=== PATIENT | female | born 1960 | race Caucasian/White ===

== ENCOUNTER 2016-06-26 06:10 | Day surgery (SDC) | payer OTHER ==
[2016-06-26] MEDS ORDERED: LACTATED RINGERS 1,000 ML IV ONE (06:46)
[2016-06-26] MEDS ORDERED: fentaNYL 250 MCG/5 ML VIAL IVP ONE (07:25)
[2016-06-26] MEDS ORDERED: MIDAZOLAM 2 MG/2 ML VIAL IVP ONE (07:25)
== END 2016-06-26 06:11 | disposition home or self-care (01) ==
PROC: 0DBK8ZZ Excision of Ascending Colon, Via Natural or Artificial Opening Endoscopic (ICD-10-PCS; principal; 2016-06-26 07:30)
DX: Z12.11 Encounter for screening for malignant neoplasm of colon (principal); D12.2 Benign neoplasm of ascending colon; K57.30 Diverticulosis of large intestine without perforation or abscess without bleeding; K64.8 Other hemorrhoids; D17.79 Benign lipomatous neoplasm of other sites; Z80.0 Family history of malignant neoplasm of digestive organs; I10 Essential (primary) hypertension; E66.9 Obesity, unspecified; Z68.41 Body mass index [BMI] 40.0-44.9, adult; J45.909 Unspecified asthma, uncomplicated; K30 Functional dyspepsia; K21.9 Gastro-esophageal reflux disease without esophagitis
CPT/HCPCS: 45380; J3010; J7120

== ENCOUNTER 2016-12-11 09:50 | Outpatient (CLI) | payer OTHER ==
[2016-12-11 17:56] LABS: BASOPHILS # (AUTO) 0.1 10^3/uL (0.0-0.1); BASOPHILS % (AUTO) 0.8 %; EOSINOPHILS # (AUTO) 0.1 10^3/uL (0.0-0.7); EOSINOPHILS % (AUTO) 0.9 %; HCT - HEMATOCRIT 46.4 % (37.0-47.0); HGB - HEMOGLOBIN 15.4 g/dL (12.0-16.0); LYMPHOCYTES # (AUTO) 2.9 10^3/uL (1.5-3.5); LYMPHOCYTES % (AUTO) 30.5 %; MEAN CORPUSCULAR HEMOGLOBIN 30.7 pg (27.0-31.0); MEAN CORPUSCULAR HGB CONC 33.3 g/dL (32.0-36.0); MEAN CORPUSCULAR VOLUME 92.2 fL (81.0-99.0); MEAN PLATELET VOLUME 9.6 fL (7.9-10.8); MONOCYTES # (AUTO) 0.6 10^3/uL (0.0-1.0); MONOCYTES % (AUTO) 6.5 %; NEUTROPHILS # (AUTO) 5.8 10^3/uL (1.5-6.6); NEUTROPHILS % (AUTO) 61.3 %; NUCLEATED RED BLOOD CELLS AUTO 0.1 /100WBC; RED BLOOD COUNT 5.03 10^6/uL (4.20-5.40); RED CELL DISTRIBUTION WIDTH 13.8 % (12.0-15.0); UNCORRECTED WHITE BLOOD COUNT 9.5 x10^3/uL; WHITE BLOOD COUNT 9.5 x10^3/uL (4.8-10.8)
[2016-12-11 17:57] LABS: ALBUMIN/GLOBULIN RATIO 1.2 (1.0-2.2); BILIRUBIN,TOTAL 0.6 mg/dL (0.2-1.0); CALCIUM 9.4 mg/dL (8.5-10.3); CREATININE 0.8 mg/dL (0.4-1.0); POTASSIUM 4.4 mmol/L (3.5-5.0); TOTAL PROTEIN 7.5 g/dL (6.7-8.2)
[2016-12-11 18:25] LABS: HEMOGLOBIN A1C 0.61 g/dL
== END 2016-12-11 09:51 | disposition home or self-care (01) ==
LOC: LAB.F 09:50
PROVIDERS: ATTEND Physician Assistant Medical
DX: I10 Essential (primary) hypertension (principal); E55.9 Vitamin D deficiency, unspecified; R73.01 Impaired fasting glucose
CPT/HCPCS: 36415; 80053; 82306; 83036; 85025

== ENCOUNTER 2016-12-14 15:50 | Outpatient (CLI) | payer OTHER ==
--- NOTE | 2016-12-16 15:36 | Mammography Report ---
DIGITAL SCREENING MAMMOGRAM: 12/14/2016 CLINICAL INDICATION: A 56-year-old, for screening. COMPARISON: 10/2015, 05/2013, 05/2012, 01/2010, 05/2008. TECHNIQUE: Routine CC and MLO projections were obtained of the breasts. FINDINGS: The breasts demonstrate scattered fibroglandular densities bilaterally. Intramammary lymph nodes are stable. A few punctate, typically benign calcifications are present. No suspicious masses, clustered microcalcifications, or regions of architectural distortion are identified. IMPRESSION: BENIGN FINDINGS. RECOMMENDATION: ROUTINE ANNUAL SCREENING UNLESS OTHERWISE CLINICALLY INDICATED. BIRADS CATEGORY 2-BENIGN FINDINGS. STANDARD QUALIFYING STATEMENTS 1. This examination was reviewed with the aid of Computer-Aided Detection (CAD). 2. A negative or benign imaging report should not delay biopsy if clinically suspicious findings are present. Consider surgical consultation if warranted. More than 5% of cancers are not identified by i maging. 3. Dense breasts may obscure an underlying neoplasm. JOB #: [id number] EXT JOB #:[id number]
== END 2016-12-14 15:51 | disposition home or self-care (01) ==
LOC: DI.S 15:50
PROVIDERS: ATTEND Physician Assistant Medical
DX: Z12.31 Encounter for screening mammogram for malignant neoplasm of breast (principal)
CPT/HCPCS: 77067

== ENCOUNTER 2017-02-15 12:21 | Outpatient (CLI) | payer OTHER ==
[2017-02-15 12:49] LABS: BASOPHILS # (AUTO) 0.1 10^3/uL (0.0-0.1); BASOPHILS % (AUTO) 0.7 %; EOSINOPHILS # (AUTO) 0.1 10^3/uL (0.0-0.7); HCT - HEMATOCRIT 44.5 % (37.0-47.0); HGB - HEMOGLOBIN 15.2 g/dL (12.0-16.0); LYMPHOCYTES # (AUTO) 3.2 10^3/uL (1.5-3.5); LYMPHOCYTES % (AUTO) 31.6 %; MEAN CORPUSCULAR HEMOGLOBIN 29.9 pg (27.0-31.0); MEAN CORPUSCULAR HGB CONC 34.1 g/dL (32.0-36.0); MEAN CORPUSCULAR VOLUME 87.8 fL (81.0-99.0); MEAN PLATELET VOLUME 8.6 fL (7.9-10.8); MONOCYTES # (AUTO) 0.7 10^3/uL (0.0-1.0); NEUTROPHILS # (AUTO) 5.9 10^3/uL (1.5-6.6); NEUTROPHILS % (AUTO) 59.7 %; RED BLOOD COUNT 5.07 10^6/uL (4.20-5.40); RED CELL DISTRIBUTION WIDTH 13.5 % (12.0-15.0)
[2017-02-15 13:01] LABS: CALCIUM 9.5 mg/dL (8.5-10.3); CREATININE 0.7 mg/dL (0.4-1.0); POTASSIUM 3.9 mmol/L (3.5-5.0)
--- NOTE | 2017-02-15 15:17 | XRAY Report ---
TWO-VIEW CHEST: 02/15/2017 CLINICAL INDICATION: Pre-op, cervical polyp. FINDINGS: Frontal and lateral views of the chest demonstrate a normal cardiac silhouette. The lungs are clear. No effusion or pneumothorax is present. IMPRESSION: NORMAL CHEST. JOB #: [id number] EXT JOB #:[id number]
== END 2017-02-15 12:22 | disposition home or self-care (01) ==
LOC: LAB 12:21
PROVIDERS: ATTEND Obstetrics & Gynecology
DX: Z01.818 Encounter for other preprocedural examination (principal); N84.1 Polyp of cervix uteri; Z79.899 Other long term (current) drug therapy
CPT/HCPCS: 36415; 71020; 80048; 85025; 86850; 86900; 86901

== ENCOUNTER 2017-02-17 08:41 | Day surgery (SDC) | payer OTHER ==
--- NOTE | 2017-02-15 11:39 | PREOP HISTORY & PHYSICAL ---
DATE OF ADMISSION/SURGERY: 02/17/2017 IDENTIFICATION: The patient is a 56-year-old G3, P3 female, who reached menopause roughly a year ago. CHIEF COMPLAINT: Cervical polyp. HISTORY OF PRESENT ILLNESS: The patient is noted to have a cervical polyp, which was roughly 7 mm in size. Because of its size, we decided to take her to the operating room and excise this because of [facility] concern of bleeding after the procedure. PAST MEDICAL HISTORY: Positive for hypertension, which is well controlled. SURGICAL HISTORY: Laparoscopic cholecystectomy. ALLERGIES: NONE KNOWN. CURRENT MEDICATIONS: Metoprolol and lisinopril. HABITS: She denies the use of tobacco or street or addictive drugs. Drinks alcohol rarely. SOCIAL HISTORY: The patient is and lives with her spouse, as well as her Downs grandson. She works as customer service support personnel. PHYSICAL EXAMINATION: GENERAL: The patient is a well-developed, well-nourished white female. VITAL SIGNS: Blood pressure is 136/78. Her BMI is 39.6. HEENT/NECK: Pupils are equal and round. Extraocular muscles are intact. There is no evidence of any s cleral icterus. Mouth is clear. The thyroid is not palpably enlarged. She still has her tonsils in pl adelina. HEART: Regular rate and rhythm, without murmurs. LUNGS: Green are clear, without rales or wheezes. ABDOMEN: Shows well-healed laparoscopic cholecystectomy scars. PELVIC: Previous cervical examination showed a cervical polyp, which shows the attachment to be high in the cervical canal. IMPRESSION: 1. A 56-year-old G3, P3 female, who is menopausal. 2. Cervical polyp. PLAN: We will perform a polypectomy in the OR. The risks and benefits have been explained to the roger ent including those, but not limited to, of bleeding and infection. The patient understands. We will obtain a chem panel and CBC, as well as an EKG and chest x-ray because of her age. JOB #: [id number] EXT JOB #:[id number]
[2017-02-17] MEDS ORDERED: ceFAZolin 2 GM/50 ML 2 GM/50 ML BAG IV ONE (09:24)
[2017-02-17] MEDS ORDERED: LACTATED RINGERS 1,000 ML IV ONE ×2 (09:39→11:00)
[2017-02-17] MEDS ORDERED: SCOPOLAMINE PATCH TOP ONE (09:40)
[2017-02-17] MEDS ORDERED: PROPOFOL 200 MG/20 ML VIAL IVP ONE (10:15)
[2017-02-17] MEDS ORDERED: DEXAMETHASONE 4 MG/ML VIAL IVP ONE (10:15)
[2017-02-17] MEDS ORDERED: MIDAZOLAM 2 MG/2 ML VIAL IVP ONE (10:15)
[2017-02-17] MEDS ORDERED: fentaNYL 100 MCG/2 ML VIAL IVP ONE (10:15)
[2017-02-17] MEDS ORDERED: ONDANSETRON 4 MG/2 ML VIAL IVP ONE (10:15)
[2017-02-17] MEDS ORDERED: LIDOCAINE-PF 2% 10 ML AMP SUBQ ONE (10:15)
--- NOTE | 2017-02-17 11:06 | OPERATIVE REPORT ---
DATE OF SURGERY: 02/17/2017 00:00:00 PREOPERATIVE DIAGNOSIS: Cervical polyp plus thickened endometrium. POSTOPERATIVE DIAGNOSIS: Cervical polyp plus thickened endometrium. NAME OF PROCEDURE: Endometrial biopsy with excision of cervical polyp. SURGEON: Alejo King MD ANESTHESIA: General via endotracheal tube with Sander Sanchez. FINDINGS: Uterus sounded to 7 cm. Scant amount of tissue was removed at time of Pipelle. There was a 7-8 mm cervical polyp, which was attached to the posterior lip of the cervix. ESTIMATED BLOOD LOSS: Less than 5 mL. DESCRIPTION OF PROCEDURE: Following adequate anesthesia, the patient was placed in the dorsal lithoto my position. Pelvic examination under anesthesia was performed, at which time a cervical polyp was in deed palpated. The uterus was unable to be palpated secondary to abdominal wall thickness. The proced ure was commenced following a time-out. She was prepped and draped in the usual fashion. A speculum w as placed in the vagina, cervix visualized, grasped with single-toothed tenaculum anteriorly. The jacinda lalo then sounded to 8 cm and then Pipelle was placed all the way to the apex of the uterus, suction w as applied, and a scant amount of tissue was removed. At this point, attention was turned to the cervical polyp. Electrocautery was used to excise from its attachment on the posterior portion of the cervix. There was evidence of good hemostasis, the entire polyp was able to be removed. The patient tolerated the procedure well and was taken to recovery in stable condition. JOB #: [id number] EXT JOB #:[id number]
[2017-02-17 11:44] VITALS: BP 138/79
== END 2017-02-17 08:42 | disposition home or self-care (01) ==
LOC: SDS 08:41
PROVIDERS: ATTEND Obstetrics & Gynecology
PROC: 0UBC7ZZ Excision of Cervix, Via Natural or Artificial Opening (ICD-10-PCS; principal; 2017-02-17 10:00)
DX: N84.1 Polyp of cervix uteri (principal)
CPT/HCPCS: 57500; J0690; J3490; J7120; 86850; 86900; 86901

== ENCOUNTER 2017-07-01 09:30 | Outpatient (CLI) | payer OTHER ==
[2017-07-01 17:58] LABS: BILIRUBIN,URINE NEGATIVE (NEGATIVE); GLUCOSE, URINE (UA) NEGATIVE (NEGATIVE); KETONES,URINE (UA) NEGATIVE (NEGATIVE); LEUKOCYTE ESTERASE, URINE NEGATIVE (NEGATIVE); NITRITE,URINE NEGATIVE (NEGATIVE); OCCULT BLOOD,URINE NEGATIVE (NEGATIVE); PROTEIN,URINE NEGATIVE (NEGATIVE); UROBILINOGEN,URINE 0.2 (NORMAL) E.U./dL (NORMAL)
[2017-07-01 18:02] LABS: CLARITY,URINE CLEAR (CLEAR)
[2017-07-01 18:05] LABS: BACTERIA,URINE None Seen /HPF (None Seen); RBC,URINE None Seen /HPF (0-5); SQUAMOUS EPITHELIAL CELL,UR MOD Squamous (<= Few)
== END 2017-07-01 09:31 | disposition home or self-care (01) ==
LOC: LAB.R 09:30
PROVIDERS: ATTEND Physician Assistant Medical
DX: R31.29 Other microscopic hematuria (principal); R10.9 Unspecified abdominal pain
CPT/HCPCS: 81001; 87086

== ENCOUNTER 2017-07-06 19:42 | Outpatient (CLI) | payer OTHER ==
--- NOTE | 2017-07-07 09:41 | Ultrasound Report ---
PELVIC ULTRASOUND: 07/06/2017 CLINICAL INDICATION: Postmenopausal bleeding. TECHNIQUE: Transabdominal pelvic ultrasound performed for global evaluation. Transvaginal pelvic ultrasound performed for detailed evaluation. Real-time scanning performed and static images obtained. FINDINGS: The uterus is anteverted, measuring 10.0 x 6.5 x 5.5 cm. The endometrial echo complex is thickened for a postmenopausal patient, measuring 13 mm. Intramural leiomyomas are noted, measuring 2.9 cm anteriorly and 1.4 cm posteriorly. The ovaries were not confidently identified on transabdominal or transvaginal imaging. No free fluid is present. IMPRESSION: THICKENED ENDOMETRIUM FOR A POSTMENOPAUSAL PATIENT. CORRELATION WITH ENDOMETRIAL BIOPSY IS RECOMMENDED. INTRAMURAL LEIOMYOMAS. TD: 07/07/2017 09:40
== END 2017-07-06 19:43 | disposition home or self-care (01) ==
LOC: DI 19:42
PROVIDERS: ATTEND Physician Assistant Medical
DX: R93.8 Abnormal findings on diagnostic imaging of other specified body structures (principal); D25.1 Intramural leiomyoma of uterus
CPT/HCPCS: 76830; 76856

== ENCOUNTER 2017-08-02 10:18 | Outpatient (CLI) | payer OTHER ==
[2017-08-02 10:51] LABS: BILIRUBIN,URINE NEGATIVE (NEGATIVE); GLUCOSE, URINE (UA) NEGATIVE (NEGATIVE); KETONES,URINE (UA) NEGATIVE (NEGATIVE); LEUKOCYTE ESTERASE, URINE TRACE (NEGATIVE); NITRITE,URINE NEGATIVE (NEGATIVE); OCCULT BLOOD,URINE NEGATIVE (NEGATIVE); PROTEIN,URINE NEGATIVE (NEGATIVE); UROBILINOGEN,URINE 0.2 (NORMAL) E.U./dL (NORMAL)
[2017-08-02 10:54] LABS: BASOPHILS # (AUTO) 0.1 10^3/uL (0.0-0.1); BASOPHILS % (AUTO) 0.5 %; EOSINOPHILS # (AUTO) 0.1 10^3/uL (0.0-0.7); EOSINOPHILS % (AUTO) 1.1 %; HGB - HEMOGLOBIN 15.2 g/dL (12.0-16.0); LYMPHOCYTES % (AUTO) 29.1 %; MEAN CORPUSCULAR HGB CONC 33.8 g/dL (32.0-36.0); MEAN PLATELET VOLUME 8.4 fL (7.9-10.8); MONOCYTES # (AUTO) 0.7 10^3/uL (0.0-1.0); MONOCYTES % (AUTO) 7.1 %; NEUTROPHILS # (AUTO) 6.5 10^3/uL (1.5-6.6); NEUTROPHILS % (AUTO) 62.2 %; PLT - PLATELET COUNT 283 10^3/uL (130-450); RED BLOOD COUNT 5.05 10^6/uL (4.20-5.40); RED CELL DISTRIBUTION WIDTH 13.4 % (12.0-15.0); WHITE BLOOD COUNT 10.4 x10^3/uL (4.8-10.8)
[2017-08-02 10:56] LABS: CLARITY,URINE CLEAR (CLEAR)
== END 2017-08-02 10:19 | disposition home or self-care (01) ==
LOC: LAB 10:18
PROVIDERS: ATTEND Obstetrics & Gynecology
DX: Z01.812 Encounter for preprocedural laboratory examination (principal); N95.0 Postmenopausal bleeding
CPT/HCPCS: 36415; 81003; 85025; 86850; 86900; 86901

== ENCOUNTER 2017-08-04 11:57 | Day surgery (SDC) | payer OTHER ==
--- NOTE | 2017-08-02 11:51 | PREOP HISTORY & PHYSICAL ---
DATE OF SERVICE: 08/02/2017 Physician: Alejo Maciel MD ANTICIPATED DATE OF PROCEDURE: 08/04/2017 DIAGNOSES 1. Postmenopausal bleeding. 2. Thickened endometrium. 3. Morbid obesity. INTENDED PROCEDURE: Diagnostic hysteroscopy, dilatation and curettage. HISTORY: The patient is a 57-year-old 3, para 3 woman who reports prior postmenopausal bleeding and in the past underwent an uneventful cervical polypectomy and endometrial biopsy with Dr. iKng. Reference his 02/17/2017 note. Pathology was reported as benign polyp and inactive endometrium. She continued to have unscheduled uterine bleeding. A repeat ultrasound was done that discovered thickened endometrium at 13 mm and 2 intramural leiomyomas (2.9 cm and 1.4 cm in diameter). There is no ovarian pathology. The continued bleeding has left the patient concerned since her mother developed endometrial cancer at the age of 30. PAST MEDICAL HISTORY 1. The patient has hypertension, which is controlled with medication. 2. She has occasional bouts of influenza. PAST SURGICAL HISTORY 1. Endometrial biopsy with cervical polypectomy. 2. Laparoscopic cholecystectomy. ALLERGIES: NONE. MEDICATIONS 1. Lisinopril. 2. Metoprolol. FAMILY HISTORY: Uterine cancer in mother, as noted above. SOCIAL HISTORY: Happily , works at home. No drug, tobacco, or alcohol use. REVIEW OF SYSTEMS CONSTITUTIONAL: Negative. HEENT: Negative. PULMONARY: Negative. CARDIAC: Negative. GASTROINTESTINAL: Negative. GENITOURINARY: Normal Paps. No STD history. Reference HPI. MUSCULOSKELETAL: Negative. NEUROLOGIC: Negative. PSYCH: Negative. PHYSICAL EXAMINATION VITAL SIGNS: Weight 224, BMI 41.6. HEENT: Supple neck, no thyromegaly. Dentition under good repair. No JVD. EOMI. Nonicteric sclerae. BREASTS: Deferred. LUNGS: Clear to auscultation. CARDIAC: Regular. No significant murmur or gallop. ABDOMEN: Large pannus. No tenderness. Mild increase in size of liver, but nontender. PELVIC: External genitalia negative. Vagina has no blood or discharge. Cervix parous. Uterus 5-6 weeks size. Adnexae nontender, not enlarged. EXTREMITIES: Nonedematous. Moves all 4 extremities well. NEUROLOGIC: Grossly intact. Cranial nerves intact. SKIN: No rash or lesions noted. STUDIES: Admit labs pending. ASSESSMENT: Patient has continued uterine bleeding despite endometrial biopsy. The patient desires to not undergo hysterectomy so that she can have a quicker recovery. Continued uterine bleeding requires tissue diagnosis and hysteroscopy provides best method. Endometrial biopsy has a sensitivity of 92% or may miss malignancy in 1/10 cases. Hysteroscopy and hysterectomy were both reviewed with their relative merits and drawbacks. Patient selected hysteroscopy. She realizes that there are anesthesia risks, hemorrhage risk with possible transfusion, infection, inadvertent perforation, and pain associated with surgery. PLAN: Risk factors were reviewed as well as other alternative. Patient is being prepared for hysteroscopy on Wednesday08/04/2017. TD: 08/02/2017 11:05
[2017-08-04] MEDS ORDERED: LACTATED RINGERS 1,000 ML IV ONE (12:16)
[2017-08-04] MEDS ORDERED: SCOPOLAMINE PATCH TOP ONE (12:22)
[2017-08-04] MEDS ORDERED: DEXAMETHASONE 4 MG/ML VIAL IVP ONE (13:00)
[2017-08-04] MEDS ORDERED: LIDOCAINE-MPF 2% 5 ML VIAL IM ONE (13:00)
[2017-08-04] MEDS ORDERED: fentaNYL 250 MCG/5 ML VIAL IVP ONE (13:00)
[2017-08-04] MEDS ORDERED: ONDANSETRON 4 MG/2 ML VIAL IVP ONE (13:00)
[2017-08-04] MEDS ORDERED: PROPOFOL 200 MG/20 ML VIAL IVP ONE (13:00)
[2017-08-04] MEDS ORDERED: MIDAZOLAM 2 MG/2 ML VIAL IVP ONE (13:00)
--- NOTE | 2017-08-04 13:36 | OPERATIVE REPORT ---
Operative Report - General Procedure Date: 08/04/17 Planned Procedure: Hysteroscopy with dilatation and curettage Pre-Op Diagnosis: Continue postmenopausal bleeding; endometrial thickening on ultrasound Procedure Performed: Hysteroscopy with dilatation and curettage Post Op Diagnosis: Benign appearing polyps - Procedure Note Primary Surgeon: Alejo Maciel MD, F ACOG, [facility] Anesthesia Technique: General ET tube IV Fluids (mL): 200 Estimated Blood Loss (mL): 200 Complications: None
[2017-08-04] MEDS ORDERED: LACTATED RINGERS 300 ML IV ONE (13:40)
[2017-08-04 15:15] VITALS: BP 148/72
--- NOTE | 2017-08-04 20:51 | OPERATIVE REPORT ---
DATE OF SERVICE: 08/04/2017 Physician: Alejo Maciel MD PREOPERATIVE DIAGNOSES 1. Continued postmenopausal bleeding. 2. Endometrial thickening on ultrasound. POSTOPERATIVE DIAGNOSES 1. Benign-appearing polyps of the endometrium. 2. Possible fibroid. PROCEDURES PERFORMED 1. Hysteroscopy. 2. Dilatation and curettage. SURGEON: Alejo Maciel MD, FACOG, [facility] ANESTHESIA: Kwan Tinoco ANESTHESIA: General, ET tube placed. BLOOD LOSS: Minimal. COMPLICATIONS: None. IV FLUIDS: 200. SPECIMENS: Benign-appearing polyps with endometrial scrapings. FINDINGS: Exam under anesthesia finds slightly enlarged uterus, about 5-6 week size, with no irregularities. There is minimal apical prolapse and slight cystorectocele, not significant. Hysteroscopy shows 2 benign-appearing polyps at the 6 o'clock position within the endometrium. Polyps were harvested as well as endometrial scrapings. TECHNIQUE: Prior to the procedure, I met with the patient and her to explain the goals, mechanisms, risks and alternatives to the surgery. Informed consent was signed. The patient was brought to the operating room, placed on the table in the supine position. She was prepped and draped in the customary sterile fashion. She was moved to the low dorsal lithotomy position with Clark Yellofin stirrups. Timeout briefing was done per protocol. Exam under anesthesia was done. A clamshell speculum was inserted and cervix was well visualized. Single-tooth tenaculum was placed on the anterior cervical Barrel. Uterus was sounded to 7.5 cm. Serial application of Hegar probes allowed easy dilation to a size 8. Hysteroscope was inserted into the cavity and flushed several times. It remained cloudy and therefore distention medium was changed from normal saline to water. The contents of the endometrium were photographed. The scope was then removed. Using a medium size curet, the endometrium was systematically curetted and polyps and a franchise sales representative sample obtained. We rescoped and ensured that the polyps were indeed gone. At this point, the procedure was terminated. All sponge, needle, instrument counts were confirmed as correct. Anesthesia was uneventfully reversed, and the patient was sent to The recovery room in good condition. Reviewed findings with the patient. She will follow up in 2 weeks. DISCHARGE MEDICATIONS: Motrin 600 q. 6 hours. The patient declined [place]. TD: 08/04/2017 20:50
== END 2017-08-04 11:58 | disposition home or self-care (01) ==
LOC: SDS 11:57
PROVIDERS: ATTEND Obstetrics & Gynecology
PROC: 0UDB8ZX Extraction of Endometrium, Via Natural or Artificial Opening Endoscopic, Diagnostic (ICD-10-PCS; 2017-08-04)
PROC: 0UB97ZX Excision of Uterus, Via Natural or Artificial Opening, Diagnostic (ICD-10-PCS; principal; 2017-08-04 13:45)
DX: N95.0 Postmenopausal bleeding (principal); N84.0 Polyp of corpus uteri; I10 Essential (primary) hypertension
CPT/HCPCS: 58558; J3010; J3490; J7120

== ENCOUNTER 2018-03-02 17:42 | Outpatient (CLI) | payer OTHER ==
--- NOTE | 2018-03-03 07:36 | XRAY Report ---
Reason: ANKLE PAIN,LEFT Procedure Date: 03/02/2018 Accession Number: [id number] / [id number] Procedure: XR - Ankle 3 View LT CPT Code: FULL RESULT: EXAM: LEFT ANKLE RADIOGRAPHY EXAM DATE: 03/02/2018 05:54 PM. CLINICAL HISTORY: ANKLE PAIN,LEFT. COMPARISON: None. TECHNIQUE: 3 views. FINDINGS: Bones: Achilles tendon and plantar heel spur No fractures or bone lesions. Joints: Normal. No effusion. No subluxations. The ankle mortise is normally aligned. Soft Tissues: Lateral view radiopaque foreign body projected over the calcaneus. Bilateral soft tissue swelling IMPRESSION: 1. Heel spurs 2. Linear radiopaque foreign bodies projected over calcaneus. Calcaneal views as warranted RADIA
== END 2018-03-02 17:43 | disposition home or self-care (01) ==
LOC: DI 17:42
PROVIDERS: ATTEND Physician Assistant Medical
DX: M25.572 Pain in left ankle and joints of left foot (principal); M77.32 Calcaneal spur, left foot

== ENCOUNTER 2018-03-10 15:33 | Outpatient (CLI) | payer OTHER ==
--- NOTE | 2018-03-10 17:12 | XRAY Report ---
Reason: FOOT ANKLE PAIN, LEFT Procedure Date: 03/10/2018 Accession Number: [id number] / [id number] Procedure: XR - Calcaneus LT CPT Code: FULL RESULT: EXAM: LEFT CALCANEUS EXAM DATE: 03/10/2018 03:57 PM. CLINICAL HISTORY: Follow-up abnormal x-ray 03/02/2018 COMPARISON: 03/02/2018 TECHNIQUE: 2 views. FINDINGS: Prominent left calcaneal spurring as before. 2 thick short linear radiopacities seen on the prior ankle x-ray project within the calcaneus on tangential projections and appear nonaggressive and stable. Given the intraosseous location of the finding and in the absence of prior surgery, a foreign body is less likely than an anatomic variant. IMPRESSION: A soft tissue foreign body is not identified. See above RADIA
== END 2018-03-10 15:34 | disposition home or self-care (01) ==
LOC: DI 15:33
PROVIDERS: ATTEND Physician Assistant Medical
DX: M79.672 Pain in left foot (principal); M25.572 Pain in left ankle and joints of left foot; M77.32 Calcaneal spur, left foot

== ENCOUNTER 2018-11-18 08:30 | Outpatient (CLI) | payer OTHER ==
[2018-11-18 10:37] LABS: ALBUMIN 4.2 g/dL (3.2-5.5); ALBUMIN/GLOBULIN RATIO 1.2 (1.0-2.2); ALKALINE PHOSPHATASE 74 IU/L (42-121); ALT ALANINE AMINOTRANSFERASE 45 IU/L (10-60); AST ASPARTATE AMINOTRANSFERASE 33 IU/L (10-42); BILIRUBIN,TOTAL 0.9 mg/dL (0.2-1.0); BUN - BLOOD UREA NITROGEN 17 mg/dL (6-20); CALCIUM 9.6 mg/dL (8.5-10.3); CARBON DIOXIDE - CO2 27 mmol/L (21-32); CHLORIDE 101 mmol/L (101-111); CHOL/HDL RATIO 5.4 (<4.4); CHOLESTEROL 211 mg/dL; CREATININE 0.9 mg/dL (0.4-1.0); GFR - MDRD 64 (>89); GLUCOSE 109 mg/dL (70-100); HDL CHOLESTEROL 39 mg/dL; LDL CHOLESTEROL,CALCULATED 115 mg/dL; LDL/HDL RATIO 2.9 (<4.4); SODIUM 140 mmol/L (135-145); TOTAL PROTEIN 7.7 g/dL (6.7-8.2); VLDL CHOLESTEROL 57 mg/dL
[2018-11-18 10:39] LABS: THYROID STIMULATING HORMONE 2.85 uIU/mL (0.34-5.60)
[2018-11-18 10:43] LABS: FREE T4 (FREE THYROXINE) 0.9 ng/dL (0.58-1.64)
[2018-11-18 10:55] LABS: HB2 TOTAL 16.1 g/dL; HEMOGLOBIN A1C 0.61 g/dL; HEMOGLOBIN A1C % 5.6 % (4.6-6.2)
== END 2018-11-18 08:31 | disposition home or self-care (01) ==
LOC: LAB.F 08:30
PROVIDERS: ATTEND Obstetrics & Gynecology
DX: Z13.1 Encounter for screening for diabetes mellitus (principal); Z71.89 Other specified counseling
CPT/HCPCS: 36415; 80053; 80061; 83036; 83721; 84439; 84443

== ENCOUNTER 2019-05-05 14:55 | Outpatient (CLI) | payer OTHER ==
--- NOTE | 2019-05-08 12:21 | Mammography Report ---
Reason: ROUTINE MAMMO Procedure Date: 05/05/2019 Accession Number: [id number] / [id number] Procedure: RAFAEL - Screening Mammo w/Kamari CPT Code: Final Report FULL RESULT: EXAM: Screening Mammo w/Kamari DATE: 05/05/2019 3:56 PM CLINICAL HISTORY: Routine screening TECHNIQUE: (B) - Bilateral CC and MLO views were obtained. COMPARISON: 12/14/2016, 10/23/2015, 06/06/2013, 06/17/2012, 02/11/2010 PARENCHYMAL PATTERN: (A) - The breasts demonstrate scattered fibroglandular densities bilaterally. FINDINGS: No significant interval change. There are no suspicious masses, calcifications, or areas of distortion. IMPRESSION: Negative examination. BI-RADS category 1. RECOMMENDATION: (ANNUAL) - Recommend routine annual screening mammography. BI-RADS CATEGORY: (1) - Negative. STANDARD QUALIFYING STATEMENTS: 1. This examination was not reviewed with the aid of Computer-Aided Detection (CAD). 2. A negative or benign imaging report should not preclude biopsy if clinically suspicious findings are present. 3. Dense breasts may obscure an underlying neoplasm. 4. This examination was reviewed with the aid of 3D breast imaging (tomosynthesis).
== END 2019-05-05 14:56 | disposition home or self-care (01) ==
LOC: DI 14:55
PROVIDERS: ATTEND Physician Assistant Medical
DX: Z12.31 Encounter for screening mammogram for malignant neoplasm of breast (principal)
CPT/HCPCS: 77063; 77067

== ENCOUNTER 2019-05-05 14:55 | Outpatient (CLI) | payer OTHER ==
--- NOTE | 2019-05-08 14:07 | DEXA Report ---
Reason: POST MENOPAUSAL Procedure Date: 05/05/2019 Accession Number: [id number] / [id number] Procedure: DEX - Dexa Spine and/or Hip CPT Code: Final Report FULL RESULT: EXAM: Dexa Spine and/or Hip DATE: 05/05/2019 3:22 PM CLINICAL HISTORY: POST MENOPAUSAL female TECHNIQUE: Dual energy x-ray absorptiometry (DXA) was performed on a [employer] System. Regions measured are the AP Spine, femoral neck, and if needed forearm. COMPARISON: 11/26/2015 In accordance with the International Society for Clinical Densitometry (ISCD) guidelines, data from previous exams may be reanalyzed using current recommendations and techniques. This is done to allow a more accurate basis for comparison with the current study. FINDINGS: The data for the lumbar spine is as follows: BMD (g/cm/cm) T-SCORE Z-SCORE REGION L1 1.195 0.5 0.9 L2 1.271 0.6 1.0 L3 1.344 1.2 1.6 L4 1.160 -0.3 0.0 TOTAL 1.237 0.5 0.8 NOTE: All evaluable vertebrae are used for classification The data for the hip is as follows: BMD (g/cm/cm) T-SCORE Z-SCORE REGION Neck 1.069 0.2 0.9 TOTAL 1.143 1.1 1.4 NOTE: The femoral neck or total proximal femur, whichever is lowest, is used for classification. DXA RESULTS SUMMARY: Spine SCAN DATE AGE BMD CHANGE VS CHANGE VS PREVIOUS PREVIOUS % [birth year]05/2019 59.0 1.237 0.005 0.4 11/26/2015 55.6 1.232 * Denotes significant change at the 95% confidence level. Denotes dissimilar scan types or analysis methods. DXA RESULTS SUMMARY: Hip SCAN DATE AGE BMD CHANGE VS CHANGE VS PREVIOUS PREVIOUS % [birth year]05/2019 59.0 1.143 0.018 1.6 [birth year]26[birth year]2015 55.6 1.125 * Denotes significant change at the 95% confidence level. Denotes dissimilar scan types or analysis methods. IMPRESSION: THE WHO CLASSIFICATION BASED ON THE INTERNATIONAL REFERENCE STANDARD IS NORMAL. THE FRACTURE RISK IS NOT INCREASED. RECOMMENDATION: Patients with diagnosis of osteoporosis or osteopenia should have regular bone mineral density assessment. For those eligible for Medicare, routine testing is allowed once every 2 years. Testing frequency can be increased for patients who have rapidly progressing disease or for those who are receiving medical therapy to restore bone mass. COMMENT: World Health Organization (WHO) definitions for osteoporosis and osteopenia: NORMAL BMD: T-score at -1.0 or higher, fracture risk is low OSTEOPENIA BMD: T-score between -1.0 and -2.5, fracture risk is increased. OSTEOPOROSIS BMD: T-score at -2.5 or lower, fracture risk is high. National Osteoporosis Foundation recommends: 1. Obtain adequate dietary calcium (at least 1200 mg per day) and vitamin D (400-800 international units per day). 2. Participate, as appropriate, in regular weightbearing and muscle-strengthening exercise. 3. Avoid tobacco use and reduce alcohol and caffeine intake. 4. For more detailed information see the website at www.NOF.org.
== END 2019-05-05 14:56 | disposition home or self-care (01) ==
LOC: DI 14:55
PROVIDERS: ATTEND Physician Assistant Medical
DX: Z78.0 Asymptomatic menopausal state (principal)
CPT/HCPCS: 77080

== ENCOUNTER 2019-08-27 06:27 | Outpatient (CLI) | payer OTHER | END 2019-08-27 06:28 | disposition EMS.NT | LOC: EMS 06:27 | PROVIDERS: ATTEND Surgery | DX: R07.89 Other chest pain (principal); R06.02 Shortness of breath; R05 Cough ==

== ENCOUNTER 2020-10-09 08:00 | Outpatient (CLI) | payer OTHER | END 2020-10-09 23:59 | disposition home or self-care (01) | LOC: LAB.S 08:00 | PROVIDERS: ATTEND Emergency Medicine | DX: R30.0 Dysuria (principal) | CPT/HCPCS: 87077; 87086 ==

== ENCOUNTER 2021-03-05 07:00 | Outpatient (CLI) | payer OTHER | END 2021-03-05 23:59 | disposition home or self-care (01) | LOC: LAB 07:00 | PROVIDERS: ATTEND Emergency Medicine | DX: U07.1 COVID-19 (principal) ==

== ENCOUNTER 2021-07-19 09:04 | Outpatient (CLI) | payer OTHER ==
[2021-07-19 14:10] LABS: BASOPHILS # (AUTO) 0.1 10^3/uL (0.0-0.1); BASOPHILS % (AUTO) 0.6 %; EOSINOPHILS # (AUTO) 0.1 10^3/uL (0.0-0.7); EOSINOPHILS % (AUTO) 0.9 %; HGB - HEMOGLOBIN 15.2 g/dL (12.0-16.0); LYMPHOCYTES % (AUTO) 34.5 %; MEAN CORPUSCULAR HEMOGLOBIN 29.9 pg (27.0-31.0); MEAN CORPUSCULAR VOLUME 90.6 fL (81.0-99.0); MEAN PLATELET VOLUME 11.4 fL (7.9-10.8); MONOCYTES # (AUTO) 0.4 10^3/uL (0.0-1.0); MONOCYTES % (AUTO) 4.6 %; NEUTROPHILS # (AUTO) 5.1 10^3/uL (1.5-6.6); NEUTROPHILS % (AUTO) 59.3 %; PLT - PLATELET COUNT 303 10^3/uL (130-450); RED BLOOD COUNT 5.08 10^6/uL (4.20-5.40); RED CELL DISTRIBUTION WIDTH 12.9 % (12.0-15.0); WHITE BLOOD COUNT 8.6 x10^3/uL (4.8-10.8)
[2021-07-19 14:48] LABS: ALBUMIN 4.5 g/dL (3.2-5.5); ALBUMIN/GLOBULIN RATIO 1.4 (1.0-2.2); ALKALINE PHOSPHATASE 67 IU/L (42-121); ALT ALANINE AMINOTRANSFERASE 18 IU/L (10-60); AST ASPARTATE AMINOTRANSFERASE 21 IU/L (10-42); BILIRUBIN,TOTAL 0.8 mg/dL (0.2-1.0); BUN - BLOOD UREA NITROGEN 13 mg/dL (6-20); CALCIUM 9.7 mg/dL (8.5-10.3); CARBON DIOXIDE - CO2 29 mmol/L (21-32); CHLORIDE 98 mmol/L (101-111); CHOL/HDL RATIO 3.6 (<4.4); CHOLESTEROL 203 mg/dL; CREATININE 0.7 mg/dL (0.4-1.0); GFR - MDRD 85 (>89); GLUCOSE 86 mg/dL (70-100); HDL CHOLESTEROL 56 mg/dL; LDL CHOLESTEROL,CALCULATED 127 mg/dL; LDL/HDL RATIO 2.3 (<4.4); POTASSIUM 3.8 mmol/L (3.5-5.0); SODIUM 139 mmol/L (135-145); TOTAL PROTEIN 7.7 g/dL (6.7-8.2); TRIGLYCERIDES 99 mg/dL; VLDL CHOLESTEROL 20 mg/dL
[2021-07-19 14:51] LABS: THYROID STIMULATING HORMONE 1.62 uIU/mL (0.34-5.60)
[2021-07-22 15:22] LABS: HEPATITIS C ANTIBODY NON-REACTIVE (NON-REACTIVE)
== END 2021-07-19 09:05 | disposition home or self-care (01) ==
LOC: LAB.N 09:04
PROVIDERS: ATTEND Registered Nurse
DX: Z00.00 Encounter for general adult medical examination without abnormal findings (principal); I10 Essential (primary) hypertension; Z13.220 Encounter for screening for lipoid disorders; Z13.29 Encounter for screening for other suspected endocrine disorder; Z13.0 Encounter for screening for diseases of the blood and blood-forming organs and certain disorders involving the immune mechanism
CPT/HCPCS: 36415; 80053; 80061; 83721; 84443; 85025; 86803

== ENCOUNTER 2021-08-20 14:50 | Outpatient (CLI) | payer OTHER ==
--- NOTE | 2021-08-22 15:09 | Mammography Report ---
BILATERAL DIGITAL SCREENING MAMMOGRAM 3D/2D: 08/20/2021 CLINICAL: Routine screening. Family history of breast cancer. Comparison is made to exams dated: 05/05/2019 mammogram and 12/14/2016 mammogram - [facility]. There are scattered fibroglandular elements in both breasts. No significant masses, calcifications, or other findings are seen in either breast. There has been no significant interval change. IMPRESSION: NEGATIVE There is no mammographic evidence of malignancy. A 1 year screening mammogram is recommended. This exam was interpreted at Station ID: [id number]. NOTE: For mammograms, a report in lay terms will be sent to the patient. Approximately 15% of breast malignancies will not be visualized mammographically. In the management of a palpable breast mass, a negative mammogram must not discourage biopsy of a clinically suspicious lesion. Electronically Signed By: Mars Awad M.D. ar/penrad:08/21/2021 08:54:28 ACR BI-RADS Category 1: Negative 3341F PARENCHYMAL PATTERN: (A) - The breast(s) demonstrate(s) scattered fibroglandular densities. BI-RADS CATEGORY: (1) - 1 RECOMMENDATION: (ANNUAL) - Recommend routine annual screening mammography. [id number] 1 year screening LATERALITY: (B)
== END 2021-08-20 14:51 | disposition home or self-care (01) ==
LOC: DI.S 14:50
PROVIDERS: ATTEND Registered Nurse
DX: Z12.31 Encounter for screening mammogram for malignant neoplasm of breast (principal); Z80.3 Family history of malignant neoplasm of breast

== ENCOUNTER 2021-10-02 06:37 | Day surgery (SDC) | payer OTHER ==
[2021-10-02] MEDS ORDERED: LACTATED RINGERS 1,000 ML IV ONE (07:04)
--- NOTE | 2021-10-02 07:56 | ANESTHESIA ---
Pre-Anesthesia VS, & Labs - Diagnosis screening - Procedure colonoscopy Vital Signs: Temp Pulse Resp BP Pulse Ox 36.8 C 59 L 20 135/68 H 99 10/02/21 06:48 10/02/21 06:48 10/02/21 06:48 10/02/21 06:48 10/02/21 06:48 Height: 5 ft 1 in Weight (kg): 81 kg Body Mass Index: 33.7 BMI Classification: Obese - NPO >8 hours - Is Patient ?: No Home Medications and Allergies Home Medications: Ambulatory Orders estradioL vaginal [Estrace vaginal] 2 gm VG ONCE 10/01/21 Calcium Carbonate [[id number]] 500 mg PO DAILY 02/18/17 estradioL vaginal [Estrace vaginal] 2 gm VG ONCE 10/01/21 Allergies/Adverse Reactions: Allergies Allergy/AdvReac Type Severity Reaction Status Date / Time No Known Drug Allergies Allergy Verified 10/02/21 06:54 Anes History & Medical History - Anesthetic History Anesthesia Complications: reports: Post-Operative Nausea/Vomiting Family history of Anesthesia Complications: Denies Family history of Malignant Hyperthermia: Denies - Medical History Cardiovascular: reports: Hypertension, High cholesterol, Murmur Pulmonary: reports: Asthma Gastrointestinal: reports: None Urinary: reports: None Musculoskeletal: reports: Chronic back pain Endocrine/Autoimmune: reports: None Skin: reports: None - Surgical History General: reports: Cholecystectomy, Colonoscopy Exam General: Alert, Oriented x3, Cooperative Dental: WNL Mouth Openin Fingerbreadth Neck Mobility: Normal Mallampati classification: II Thyromental Distance: 4-6 cm Respiratory: Lungs clear Cardiovascular: Regular rate Plan Anesthesia Type: General, Total IV Consent for Procedure(s) Verified and Reviewed: Yes Code Status: Attempt Resuscitation ASA classification: 2-Mild systemic disease Is this case an emergency?: No
[2021-10-02] MEDS ORDERED: PROPOFOL 500 MG/50 ML 500 MG/50 ML VIAL ONE (08:48)
[2021-10-02] MEDS ORDERED: LIDOCAINE-MPF 2% 5 ML VIAL ONE (08:48)
[2021-10-02] MEDS ORDERED: LACTATED RINGERS 550 ML IV ONE ×2 (09:01)
[2021-10-02 09:03] VITALS: BP 102/54
--- NOTE | 2021-10-02 12:55 | ANESTHESIA POST OP EVALUATION ---
Anesthesia Post Eval - Post Anesthesia Eval Vitals: Last Vital Signs Temp 36.7 C 10/02/21 09:09 Pulse 62 10/02/21 09:09 Resp 16 10/02/21 09:09 BP 102/54 L 10/02/21 09:09 Pulse Ox 99 10/02/21 09:09 CV Function Including HR & BP: Stable Pain Control: Satisfactory Nausea & Vomiting: Negative Mental Status: Baseline Respiratory Status: Airway Patent Hydration Status: Satisfactory Anesthesia Complications: None
== END 2021-10-02 06:38 | disposition home or self-care (01) ==
LOC: SDS 06:37
PROVIDERS: ATTEND Surgery
DX: Z12.11 Encounter for screening for malignant neoplasm of colon (principal); K57.30 Diverticulosis of large intestine without perforation or abscess without bleeding; D17.79 Benign lipomatous neoplasm of other sites; Z86.010 Personal history of colon polyps; Z80.0 Family history of malignant neoplasm of digestive organs; E66.9 Obesity, unspecified; Z68.33 Body mass index [BMI] 33.0-33.9, adult; H81.10 Benign paroxysmal vertigo, unspecified ear
CPT/HCPCS: 45378; J7120

== ENCOUNTER 2022-01-20 08:00 | Outpatient (CLI) | payer OTHER | END 2022-01-20 23:59 | disposition home or self-care (01) | LOC: LAB.S 08:00 | PROVIDERS: ATTEND Physician Assistant Medical | DX: J02.9 Acute pharyngitis, unspecified (principal) | CPT/HCPCS: 87070 ==

== ENCOUNTER 2022-06-26 07:09 | Outpatient (CLI) | payer OTHER ==
[2022-06-26 15:10] LABS: BASOPHILS # (AUTO) 0.1 10^3/uL (0.0-0.1); BASOPHILS % (AUTO) 0.7 %; EOSINOPHILS # (AUTO) 0.1 10^3/uL (0.0-0.7); EOSINOPHILS % (AUTO) 1.6 %; HCT - HEMATOCRIT 48.5 % (37.0-47.0); HGB - HEMOGLOBIN 14.9 g/dL (12.0-16.0); LYMPHOCYTES # (AUTO) 3.4 10^3/uL (1.5-3.5); MEAN CORPUSCULAR HGB CONC 30.7 g/dL (32.0-36.0); MEAN CORPUSCULAR VOLUME 94.4 fL (81.0-99.0); MONOCYTES # (AUTO) 0.7 10^3/uL (0.0-1.0); MONOCYTES % (AUTO) 7.8 %; NEUTROPHILS # (AUTO) 4.6 10^3/uL (1.5-6.6); NEUTROPHILS % (AUTO) 51.8 %; PLT - PLATELET COUNT 318 10^3/uL (130-450); RED BLOOD COUNT 5.14 10^6/uL (4.20-5.40); RED CELL DISTRIBUTION WIDTH 14.4 % (12.0-15.0); WHITE BLOOD COUNT 8.9 x10^3/uL (4.8-10.8)
[2022-06-26 15:52] LABS: ALBUMIN 4.1 g/dL (3.2-5.5); ALBUMIN/GLOBULIN RATIO 1.3 (1.0-2.2); ALKALINE PHOSPHATASE 63 IU/L (42-121); ALT ALANINE AMINOTRANSFERASE 30 IU/L (10-60); AST ASPARTATE AMINOTRANSFERASE 25 IU/L (10-42); BILIRUBIN,TOTAL 0.8 mg/dL (0.2-1.0); BUN - BLOOD UREA NITROGEN 15 mg/dL (6-20); CALCIUM 9.1 mg/dL (8.5-10.3); CARBON DIOXIDE - CO2 29 mmol/L (21-32); CHLORIDE 99 mmol/L (101-111); CHOLESTEROL 203 mg/dL; CREATININE 0.7 mg/dL (0.4-1.0); GFR - MDRD 85 (>89); GLUCOSE 105 mg/dL (70-100); HDL CHOLESTEROL 41 mg/dL; LDL CHOLESTEROL,CALCULATED 131 mg/dL; LDL/HDL RATIO 3.2 (<4.4); POTASSIUM 4.3 mmol/L (3.5-5.0); SODIUM 137 mmol/L (135-145); TOTAL PROTEIN 7.3 g/dL (6.7-8.2); TRIGLYCERIDES 154 mg/dL; VLDL CHOLESTEROL 31 mg/dL
[2022-06-26 15:53] LABS: THYROID STIMULATING HORMONE 2.23 uIU/mL (0.34-5.60)
== END 2022-06-26 07:10 | disposition home or self-care (01) ==
LOC: LAB.S 07:09
PROVIDERS: ATTEND Registered Nurse
DX: Z00.00 Encounter for general adult medical examination without abnormal findings (principal); I10 Essential (primary) hypertension; Z13.220 Encounter for screening for lipoid disorders; Z13.29 Encounter for screening for other suspected endocrine disorder; Z13.0 Encounter for screening for diseases of the blood and blood-forming organs and certain disorders involving the immune mechanism
CPT/HCPCS: 36415; 80053; 80061; 83721; 84443; 85025

== ENCOUNTER 2022-08-07 14:52 | Outpatient (CLI) | payer OTHER ==
--- NOTE | 2022-08-10 10:41 | Mammography Report ---
BILATERAL DIGITAL SCREENING MAMMOGRAM 3D/2D: 08/07/2022 CLINICAL: Routine screening. Comparison is made to exams dated: 08/20/2021 mammogram, 05/05/2019 mammogram, 12/14/2016 mammogram, mammogram, 06/06/2013 mammogram, and 06/17/2012 mammogram - [facility]. Both breasts are heterogeneously dense, which may obscure small masses (category c / 51-75% glandular tissue). No significant masses, calcifications, or other findings are seen in either breast. There has been no significant interval change. IMPRESSION: NEGATIVE There is no mammographic evidence of malignancy. A 1 year screening mammogram is recommended. Based on the Tyrer Cuzick model (a risk assessment model) the patients lifetime risk is 7.9% and her 10 year risk is 3.4%. According to the ACR, ACS, and NCCN guidelines, an annual breast MRI exam laxmi g with mammogram is recommended if the patients lifetime risk is 20% or greater. This exam was interpreted at Station ID: [id number]. NOTE: For mammograms, a report in lay terms will be sent to the patient. Approximately 15% of breast malignancies will not be visualized mammographically. In the management of a palpable breast mass, a negative mammogram must not discourage biopsy of a clinically suspicious lesion. Electronically Signed By: Domi mitchell/melania:08/07/2022 17:13:05 letter sent: No_Letter ACR BI-RADS Category 1: Negative 3341F PARENCHYMAL PATTERN: (D) - The breast(s) demonstrate(s) heterogeneously dense fibroglandular mani wheeler. BI-RADS CATEGORY: (1) - 1 Mammogram [id number] 1 year screening LATERALITY: (B)
== END 2022-08-07 14:53 | disposition home or self-care (01) ==
LOC: DI 14:52
PROVIDERS: ATTEND Registered Nurse
DX: Z12.31 Encounter for screening mammogram for malignant neoplasm of breast (principal)

== ENCOUNTER 2023-08-03 13:54 | Outpatient (CLI) | payer OTHER ==
--- NOTE | 2023-08-11 11:15 | Mammography Report ---
BILATERAL DIGITAL SCREENING MAMMOGRAM 3D/2D: 08/10/2023 CLINICAL: Routine screening. Family history of breast cancer. Comparison is made to exams dated: 08/07/2022 mammogram, 08/20/2021 mammogram, and 05/05/2019 mammogra m - [facility]. There are scattered areas of fibroglandular density in both breasts (category b / 25%-50% glandular t issue). No significant masses, calcifications, or other findings are seen in either breast. There has been no significant interval change. IMPRESSION: NEGATIVE There is no mammographic evidence of malignancy. A 1 year screening mammogram is recommended. Based on the Tyrer Cuzick model (a risk assessment model) the patient's lifetime risk is 5.1% and her 10 year risk is 2.3%. According to the ACR, ACS, and NCCN guidelines, an annual breast MRI exam laxmi g with mammogram is recommended if the patient's lifetime risk is 20% or greater. This exam was interpreted at Station ID: [id number]. NOTE: For mammograms, a report in lay terms will be sent to the patient. Approximately 15% of breast malignancies will not be visualized mammographically. In the management of a palpable breast mass, a negative mammogram must not discourage biopsy of a clinically suspicious lesion. Electronically Signed By: Mars [email or web address]/[email or web address]:08/10/2023 15:35:30 letter sent: No_Letter ACR BI-RADS Category 1: Negative 3341F PARENCHYMAL PATTERN: (A) - The breast(s) demonstrate(s) scattered fibroglandular densities. BI-RADS CATEGORY: (1) - 1 RECOMMENDATION: (ANNUAL) - Recommend routine annual screening mammography. [id number] 1 year screening LATERALITY: (B)
== END 2023-08-03 13:55 | disposition home or self-care (01) ==
LOC: DI.S 13:54
PROVIDERS: ATTEND Registered Nurse
DX: Z12.31 Encounter for screening mammogram for malignant neoplasm of breast (principal); Z80.3 Family history of malignant neoplasm of breast; R92.323 Mammographic fibroglandular density, bilateral breasts

== ENCOUNTER 2023-08-23 14:03 | Outpatient (CLI) | payer OTHER | END 2023-08-23 14:04 | disposition home or self-care (01) | LOC: NS 14:03 | PROVIDERS: ATTEND Registered Nurse | DX: Z71.3 Dietary counseling and surveillance (principal); E66.9 Obesity, unspecified; Z68.41 Body mass index [BMI] 40.0-44.9, adult | CPT/HCPCS: 97802 ==